=== PATIENT | female | born 1965 | race Caucasian/White ===

== ENCOUNTER 2017-12-04 10:52 | Outpatient (CLI) | payer OTHER ==
--- NOTE | 2017-12-04 12:23 | MMO ---
SCREENING MAMMOGRAPHY: 12/04/2017 COMPARISON: 04/10/2016 TECHNIQUE: Bilateral CC and MLO views. FINDINGS: Interpretation is made with the assistance of CAD. The breast parenchyma is comprised of heterogeneous dense tissue, which may limit the sensitivity of mammography. Benign appearing calcifications are seen. No suspicious masses, areas of architectural distortion, or suspicious calcifications apparent. IMPRESSION: BI-RADS Category 2-Benign findings. Annual screening mammography recommended. POS: [facility]
== END 2017-12-04 10:53 | disposition home or self-care (01) ==
LOC: SCSMAMMO 10:52
PROVIDERS: ATTEND Family Medicine
DX: Z12.31 Encounter for screening mammogram for malignant neoplasm of breast (principal)
CPT/HCPCS: 77067